=== PATIENT | female | born 1970 | race Caucasian/White ===

== ENCOUNTER 2016-08-23 23:17 | Emergency (ER) | payer SELFPAY ==
[~2016-08-23] VITALS: Ht 154.9 cm; Wt 111.7 kg
[~2016-08-23 23:17] MED LIST: ULTRAM50 MG PO
[2016-08-24] MEDS ORDERED: NORCO 5/3251 TABLET PO (01:15)
[2016-08-24 01:24] VITALS: BP 106/65
== END 2016-08-24 01:25 | disposition home or self-care (01) ==
LOC: EME 23:17
DX: M25.562 Pain in left knee (principal); S53.401A Unspecified sprain of right elbow, initial encounter; M25.572 Pain in left ankle and joints of left foot; W01.0XXA Fall on same level from slipping, tripping and stumbling without subsequent striking against object, initial encounter; Y93.G3 Activity, cooking and baking; Y92.000 Kitchen of unspecified non-institutional (private) residence as the place of occurrence of the external cause; M54.5 Low back pain; Z87.891 Personal history of nicotine dependence
CPT/HCPCS: 73080; 73564; 73610; 99281; 99285

== ENCOUNTER 2016-10-24 16:14 | Emergency (ER) | payer OTHER ==
[~2016-10-24] VITALS: Ht 157.5 cm; Wt 114.1 kg
[~2016-10-24 16:14] MED LIST changes: +NORCO 5/3251 TABLET PO
[2016-10-24] MEDS ORDERED: MOBIC7.5 MG PO (17:46)
[2016-10-24] MEDS ORDERED: NORCO 5/3251 TABLET PO (17:46)
[2016-10-24 18:30] VITALS: BP 112/81
== END 2016-10-24 18:54 | disposition home or self-care (01) ==
LOC: EME 16:14
DX: S80.02XA Contusion of left knee, initial encounter (principal); S80.812A Abrasion, left lower leg, initial encounter; W11.XXXA Fall on and from ladder, initial encounter; R00.0 Tachycardia, unspecified; M17.12 Unilateral primary osteoarthritis, left knee; F17.200 Nicotine dependence, unspecified, uncomplicated
CPT/HCPCS: 73564; 99281; 99283

== ENCOUNTER 2016-12-04 17:45 | Emergency (ER) | payer OTHER ==
[~2016-12-04] VITALS: Ht 157.5 cm; Wt 113.0 kg
[~2016-12-04 17:45] MED LIST changes: +MOBIC7.5 MG PO
[2016-12-04] MEDS ORDERED: NAPROSYN500 MG PO (19:14)
[2016-12-04] MEDS ORDERED: MOBIC7.5 MG PO (19:22)
[2016-12-04 19:58] VITALS: BP 108/66
== END 2016-12-04 19:58 | disposition home or self-care (01) ==
LOC: EME 17:45
DX: S83.92XA Sprain of unspecified site of left knee, initial encounter (principal); X50.1XXA Overexertion from prolonged static or awkward postures, initial encounter; W18.30XA Fall on same level, unspecified, initial encounter
CPT/HCPCS: 73564; 99281; 99283

== ENCOUNTER 2016-12-30 17:30 | Emergency (ER) | payer OTHER ==
[~2016-12-30] VITALS: Ht 157.5 cm; Wt 111.9 kg
[~2016-12-30 17:30] MED LIST changes: +NAPROSYN500 MG PO
[2016-12-30 18:39] LABS: MCH 31.7 PG (29.0-34.0); MCV 93.4 FL (83-99); MEAN PLAT.VOLUME 10.3 uM^3 (9.5-12.4); PLATELET COUNT 154 K/uL (156-360); RBC DIS.WIDTH-SD 44.6 % (39-53); RED BLOOD COUNT 4.82 M/uL (3.80-5.20); WHITE BLOOD COUNT 5.5 K/uL (4.1-10.2)
[2016-12-30 18:58] LABS: CHLORIDE 111 mEq/L (99-109); POTASSIUM 3.7 mEq/L (3.7-5.4); SODIUM 142 mEq/L (136-147)
[2016-12-30 19:00] LABS: GLUCOSE 98 mg/dL (70-99)
[2016-12-30 19:01] LABS: ANION GAP 13 MEQ/L (2-14)
[2016-12-30 19:03] LABS: SERUM ETHYL ALCOHOL 129 mg/dL
[2016-12-30 19:04] LABS: GFR ESTIMATE (CALCULATED) > 59 mL/min/; TROP-I INTERPRETATION NEGATIVE; TROPONIN-I 0.02 ng/mL (0.0-0.30); UREA NITROGEN (BUN) 6 mg/dL (9-23)
[2016-12-30] MEDS ORDERED: CYMBALTA60 MG PO (21:38)
[2016-12-30] MEDS ORDERED: KLONOPIN1 MG PO (21:39)
[2016-12-30 22:00] LABS: ADD MIUA? YES; BILIRUBIN NEGATIVE; BLOOD NEGATIVE; COLOR YELLOW ((YELLOW)); GLUCOSE (STRIP) NEGATIVE; KETONES NEGATIVE; LEUKOCYTES NEGATIVE; NITRITE NEGATIVE; PROTEIN (STRIP) NEGATIVE; SPECIFIC GRAVITY 1.013 (1.000-1.030)
[2016-12-30 22:01] VITALS: BP 142/88
[2016-12-30 22:05] LABS: AMPHETAMINE NEGATIVE (500 ng/mL); BENZODIAZEPINES PRESUMPTIVE POSITIVE (150 ng/mL); COCAINE NEGATIVE (150 ng/mL); METHADONE NEGATIVE (200 ng/mL); METHAMPHETAMINE NEGATIVE (500 ng/mL); OPIATES (MORPHINE) NEGATIVE (100 ng/mL); PHENCYCLIDINE NEGATIVE (25 ng/mL); THC CANNABINOIDS NEGATIVE (50 ng/mL); TRICYCLIC ANTIDEPRESSANTS NEGATIVE (300 ng/mL)
[2016-12-30 22:06] LABS: ADD MEDTOX COMMENT Y; BARBITURATES NEGATIVE (200 ng/mL); INTERNAL CONTROLS VALID? YES; OXYCODONE NEGATIVE (100 ng/mL); PROPOXYPHENE NEGATIVE (300 ng/mL)
[2016-12-30 22:10] LABS: BACTERIA RARE /HPF; EPITHELIAL CELLS 1+ /HPF; MUCUS TRACE /LPF; RED BLOOD CELLS 0-5 /HPF (0-5); UCUL ADDED? NO; WHITE BLOOD CELLS 0-5 /HPF (0-5)
[2016-12-30 22:54] LABS: BENZODIAZEPINES QUANT VALUE 0 NG/ML; BENZODIAZEPINES, URINE SCREEN Negative (200 ng/mL)
== END 2016-12-30 22:01 | disposition home or self-care (01) ==
LOC: EME 17:30
PROVIDERS: Emergency Medicine
DX: F41.9 Anxiety disorder, unspecified (principal); Z76.0 Encounter for issue of repeat prescription; F17.200 Nicotine dependence, unspecified, uncomplicated
CPT/HCPCS: 80048; 81003; 84484; 84999; 85027; 90839; 93005; 99281; 99284; G0480

== ENCOUNTER 2017-01-08 01:07 | Emergency (ER) | payer OTHER ==
[~2017-01-08] VITALS: Ht 157.5 cm; Wt 113.8 kg
[~2017-01-08 01:07] MED LIST changes: +ASPIRIN BUFFER325 MG PO; +ASPIRIN325 MG PO; +BENADRYL25 MG PO; +CLARISPRAY9.9 ML BOTH NARES; +CLONAZEPAM1 MG PO; +CYMBALTA60 MG PO; +DICLOFENAC SODI75 MG PO; +ENDOCET 5-3251 EACH PO; +FLEXERIL10 MG PO; +GABAPENTIN300 MG PO; +HYDROCODON-ACE1 EAC7 PO; +IBUPROFEN800 MG PO; +KLONOPIN1 MG PO; +LASIX20 MG PO; +MEDROXYPROGESTE10 MG PO; +MOTRIN400 MG PO; +MOTRIN800 MG PO; +NEURONTIN300 MG PO; +NORCO 10/3251 TABLET PO; +PERCOCET 5/31 TABLET PO; +WELLBUTRIN XL300 MG PO
[2017-01-08 02:07] LABS: EOSINOPHIL (%) 0.8 % (0-5); EOSINOPHIL COUNT 0.1 K/uL (0-0.3); HEMATOCRIT 39.1 % (36.0-46.0); IMMATURE GRANULOCYTE (%) 0.2 % (0.0-0.7); INSTRUMENT ABS NEUTROPHIL CT 4.3 K/uL; LYMPHOCYTE COUNT 1.2 K/uL (1.0-2.8); MCH 31.7 PG (29.0-34.0); MCHC 34.3 G/DL (30.0-36.0); MCV 92.4 FL (83-99); MEAN PLAT.VOLUME 10.7 uM^3 (9.5-12.4); MONOCYTE (%) 11.1 % (3-12); MONOCYTE COUNT 0.7 K/uL (0-0.8); NEUTROPHIL (%) 68.3 % (45-76); NEUTROPHIL COUNT 4.3 K/uL (1.8-6.4); PLATELET COUNT 132 K/uL (156-360); RBC DIS.WIDTH-CV 13.1 % (11.8-14.6); RBC DIS.WIDTH-SD 44.2 % (39-53); RED BLOOD COUNT 4.23 M/uL (3.80-5.20); WHITE BLOOD COUNT 6.3 K/uL (4.1-10.2)
[2017-01-08 02:14] LABS: CHLORIDE 104 mEq/L (99-109); POTASSIUM 3.1 mEq/L (3.7-5.4); SODIUM 138 mEq/L (136-147)
[2017-01-08 02:16] LABS: GLUCOSE 124 mg/dL (70-99)
[2017-01-08 02:17] LABS: ANION GAP 13 MEQ/L (2-14)
[2017-01-08 02:18] LABS: TOTAL BILIRUBIN 0.8 mg/dL (0.0-1.0)
[2017-01-08 02:19] LABS: SERUM ETHYL ALCOHOL 133 mg/dL
[2017-01-08 02:20] LABS: ALKALINE PHOSPHATASE 130 IU/L (3-129); GFR ESTIMATE (CALCULATED) > 59 mL/min/
[2017-01-08 02:21] LABS: UREA NITROGEN (BUN) 9 mg/dL (9-23)
[2017-01-08 02:28] LABS: QUANTITATIVE HCG < 4.0 MIU/ML
[2017-01-08 04:02] VITALS: BP 131/67
[2017-01-09] MEDS ORDERED: PREDNISONE20 MG PO (18:35)
[2017-01-09] MEDS ORDERED: NAPROXEN500 MG PO (18:35)
[2017-01-09] MEDS ORDERED: LIDODERM 5% P1 PATCH TD (18:35)
[2017-01-09] MEDS ORDERED: FLEXERIL10 MG PO (19:08)
== END 2017-01-08 04:03 | disposition left against medical advice (07) ==
LOC: EME 01:07
PROVIDERS: Emergency Medicine
DX: M54.16 Radiculopathy, lumbar region (principal); S30.0XXA Contusion of lower back and pelvis, initial encounter; F10.10 Alcohol abuse, uncomplicated; M25.521 Pain in right elbow; M25.522 Pain in left elbow; M51.36 Other intervertebral disc degeneration, lumbar region; M41.9 Scoliosis, unspecified; F32.9 Major depressive disorder, single episode, unspecified; Z91.040 Latex allergy status; Z88.0 Allergy status to penicillin; Z88.2 Allergy status to sulfonamides; F17.200 Nicotine dependence, unspecified, uncomplicated
CPT/HCPCS: 72100; 73080; 80053; 81003; 84702; 85025; G0480; J1885; J7030

== ENCOUNTER 2017-01-09 18:09 | Emergency (ER) | payer OTHER ==
[~2017-01-09] VITALS: Ht 157.5 cm; Wt 109.0 kg
[2017-01-09] MEDS ORDERED: NAPROXEN500 MG PO (18:35)
[2017-01-09] MEDS ORDERED: PREDNISONE20 MG PO (18:35)
[2017-01-09] MEDS ORDERED: LIDODERM 5% P1 PATCH TD (18:35)
[2017-01-09] MEDS ORDERED: FLEXERIL10 MG PO (19:08)
[2017-01-09 19:30] VITALS: BP 130/105
== END 2017-01-09 20:03 | disposition left against medical advice (07) ==
LOC: EME 18:09
DX: M54.5 Low back pain (principal); F32.9 Major depressive disorder, single episode, unspecified; Z88.0 Allergy status to penicillin; Z91.040 Latex allergy status; Z88.2 Allergy status to sulfonamides; F17.200 Nicotine dependence, unspecified, uncomplicated
CPT/HCPCS: 99281; 99285; J1885; J7512

== ENCOUNTER → 2017-03-02 | Outpatient (CLI) | payer OTHER ==
[~2017-03-02] MED LIST changes: +LIDODERM 5% P1 PATCH TD; +NAPROXEN500 MG PO; +PREDNISONE20 MG PO; +TRAMADOL HCL50 MG PO
== END | disposition home or self-care (01) ==
LOC: RAD 10:00
DX: K74.60 Unspecified cirrhosis of liver (principal); B18.2 Chronic viral hepatitis C
CPT/HCPCS: 76705

== ENCOUNTER 2017-03-03 18:51 | Emergency (ER) | payer OTHER ==
[~2017-03-03] VITALS: Ht 157.5 cm; Wt 110.0 kg
[~2017-03-03 18:51] MED LIST changes: -TRAMADOL HCL50 MG PO
[2017-03-03 22:11] LABS: AMPHETAMINE NEGATIVE (500 ng/mL); BARBITURATES NEGATIVE (200 ng/mL); BENZODIAZEPINES NEGATIVE (150 ng/mL); COCAINE NEGATIVE (150 ng/mL); INTERNAL CONTROLS VALID? YES; METHADONE NEGATIVE (200 ng/mL); METHAMPHETAMINE NEGATIVE (500 ng/mL); OPIATES (MORPHINE) NEGATIVE (100 ng/mL); OXYCODONE NEGATIVE (100 ng/mL); PHENCYCLIDINE NEGATIVE (25 ng/mL); PROPOXYPHENE NEGATIVE (300 ng/mL); THC CANNABINOIDS NEGATIVE (50 ng/mL); TRICYCLIC ANTIDEPRESSANTS NEGATIVE (300 ng/mL)
[2017-03-03] MEDS ORDERED: NAPROSYN500 MG PO (23:16)
[2017-03-03] MEDS ORDERED: TRAMADOL HCL50 MG PO (23:16)
[2017-03-03 23:37] VITALS: BP 127/83
== END 2017-03-03 23:38 | disposition home or self-care (01) ==
LOC: RME 18:51 → EME 18:51 → RME 23:38
PROVIDERS: Physician Assistant
DX: S83.012A Lateral subluxation of left patella, initial encounter (principal); S30.0XXA Contusion of lower back and pelvis, initial encounter; M79.605 Pain in left leg; W19.XXXA Unspecified fall, initial encounter; Y93.67 Activity, basketball; M17.12 Unilateral primary osteoarthritis, left knee; F17.200 Nicotine dependence, unspecified, uncomplicated
CPT/HCPCS: 72220; 73564; 93971; 99281; 99284